=== PATIENT | female | born 1975 | race Caucasian/White ===

== ENCOUNTER 2017-07-17 08:02 | Day surgery (SDC) | payer BC ==
[2017-07-15 15:23] VITALS: BMI 36.1
[2017-07-17] MEDS ORDERED: LIDOCAINE 1%/EPI 1:100000 (50 ML MULTI DOSE VIAL) ONE (09:35)
[2017-07-17] MEDS ORDERED: BUPIVACAINE HCL/PF 0.5% (5MG/ML) 10 ML VIAL ONE (09:35)
--- NOTE | 2017-07-17 09:37 | HP ---
Satellite H - Chief Complaint Chief Complaint: right knee pain - Past Medical History Allergies/Adverse Reactions: Allergies Allergy/AdvReac Type Severity Reaction Status Date / Time No Known Allergies Allergy Verified 07/15/17 15:29 ...LMP: 07/09/17 - Current Medications Current Medications: Home Medications Medication Instructions Recorded Fluoxetine HCl 20 mg PO DAILY 07/15/17 Ibuprofen [Motrin -] 600 - 800 mg PO DAILY 07/15/17 Levothyroxine [Synthroid -] 150 mcg PO DAILY 07/15/17 Oxycodone HCl/Acetaminophen 1 - 2 tab PO Q6H #30 tab MDD 8 07/17/17 [Percocet 5-325 mg Tablet -] Satellite Physical Exam - Physical Examination Vital Signs: Vital Signs Period Temp Pulse Resp BP Sys/Stevens Pulse Ox Last 24 Hr 98.6 F 70 18 138/96 General Appearance: Well Nourished, Well Developed, Alert & Oriented x3 ENT: Clear Lung: Normal air movement Heart: Regular rate & rhythm Extremities: Other (right knee- + swelling, + ttp, decr rom, + mcmurrays, + apleys, nvi MRI + mt) Neurological: Intact, Alert, Oriented Satellite Impression/Plan - Impression/Plan Impression: right knee internal derangement Operative Procedure: right knee arthroscopy Date to be Performed: 07/17/17
[2017-07-17] MEDS ORDERED: PROPOFOL 20 ML ONE ×2 (09:46)
[2017-07-17] MEDS ORDERED: MIDAZOLAM HCL 2 MG/2 ML SINGLE DOSE VIAL ONE (09:47)
[2017-07-17] MEDS ORDERED: DEXAMETHASONE SOD PHOSPHATE 4 MG/1 ML VIAL ONE (10:01)
[2017-07-17] MEDS ORDERED: ceFAZolin SODIUM 1 GM VIAL ONE (10:01)
[2017-07-17] MEDS ORDERED: LIDOCAINE 1%/EPI 1:100000 (20 ML MULTI DOSE VIAL) IJ ONE (10:14)
[2017-07-17] MEDS ORDERED: BUPIVACAINE HCL/PF 0.5% (5MG/ML) 10 ML VIAL IJ ONE (10:27)
--- NOTE | 2017-07-17 10:34 | OP ---
Operative Note - Note: Operative Date: 07/17/17 ([facility]) Pre-Operative Diagnosis: right knee internal derangement Operation: right knee arthroscopy with debridement chondroplasty trochlea and MFC Post-Operative Diagnosis: Same as Pre-op Surgeon: Eric Mclean Anesthesiologist/CUSTOM WOOD STAIR BUILDER: Curt Cho Anesthesia: General, Local Specimens Removed: shavings Estimated Blood Loss (mls): 5 Operative Report Dictated: Yes
[2017-07-17] MEDS ORDERED: oxyCODONE HCL 5 MG TABLET PO PRN (10:43)
[2017-07-17] MEDS ORDERED: ONDANSETRON 4 MG/2 ML VIAL IVPUSH PRN (10:43)
[2017-07-17] MEDS ORDERED: LACTATED RINGERS SOLUTION 1,000 ML IV SCH (10:45)
[2017-07-17] MEDS ORDERED: KETOROLAC TROMETHAMINE 30 MG/1 ML VIAL ONE (11:15)
[2017-07-17] MEDS ORDERED: KETOROLAC TROMETHAMINE 30 MG/1 ML VIAL IVPUSH ONE (11:25)
--- NOTE | 2017-07-17 11:34 | OP ---
DATE OF OPERATION: 07/17/2017 PREOPERATIVE DIAGNOSIS: Internal derangement, right knee. POSTOPERATIVE DIAGNOSIS: Internal derangement, right knee. PROCEDURE: Arthroscopy, right knee, with chondroplasty patella, trochlea and medial femoral condyle. SURGICAL ATTENDING: Eric Mclean MD ANESTHESIA: General with LMA. CLOSURE: Nylon 4-0. COMPLICATIONS: None. CONDITION: To recovery room in stable condition. DESCRIPTION OF OPERATIVE PROCEDURE: Patient was taken to the operating room on July 17, 2017. General anesthesia with LMA was administered by the anesthesiologist. Right lower extremity was prepped and draped in the usual sterile fashion. The medial and lateral infrapatellar portal sites were infiltrated with 1% Xylocaine with epinephrine. Both portals were then made with a 15 blade followed by blunt trocar. The scope trocar was placed into the lateral infrapatellar portal and up into the suprapatellar pouch. The knee was then inflated with a cocktail of 10 mL of 1% Xylocaine and 10 mL of 0.5% Marcaine and 20 mL of arthroscopic saline to anesthetize the intraarticular portion of the knee. After the medication had sat for a few minutes, the procedure was performed. The pouch was visualized to be clean. The medial and lateral gutters were visualized to be clean. The undersurface of the patella had "crabmeat" which was debrided using the shaver down to stable articular cartilage. The trochlea was visualized and was found to have punctate areas of cartilage deficiency, especially more inferiorly. Any loose articular cartilage was debrided using the shaver. With valgus stress on the knee, the medial compartment was entered. The medial meniscus was visualized, probed, and found to be intact. The medial femoral condyle had a lesion the size of a dime in near full extension on the most lateral portion of the medial femoral condyle. A chondroplasty was then performed using a shaver, exposing some bleeding bone in this region. The rest of the medial femoral condyle was found to be intact, as was the medial tibial plateau. At 90 degrees, the ACL was visualized, probed, and found to be intact. In the figure-four position, the lateral compartment was entered. The lateral meniscus was visualized, probed, and found to be intact. The lateral tibial plateau was found to have very loose and soft articular cartilage, but no deficiencies anywhere. The lateral femoral condyle was run and found to be intact. The knee was irrigated with copious amounts of irrigation. The fluid was then drained from the knee. The portal were closed with 3-0 nylon. Prior to pulling the scope trocar, 20 mL of 0.5% Marcaine was infused into the knee through the scope trocar, and then the trocar was removed. A sterile pressure dressing was placed over the knee. The patient was awakened from anesthesia and transferred to recovery room in stable condition. No complications. Estimated blood loss negligible. Jeovany [id number]
[2017-07-17 16:03] VITALS: BP 130/78; PULSE 60; TEMP 97.8
--- NOTE | 2017-07-18 14:32 | PATH ---
Surgical Pathology Report Patient Name: SID TEJEDA [facility]. Rec. #: [id number] /Age/Gender: 1975 (Age: 42) / F Account: [id number] Location: [facility] SURGICAL Taken: 07/17/2017 Received: 07/17/2017 Reported: 07/18/2017 Physicians: Eric Mclean M.D. Specimen(s) Received RIGHT KNEE SHAVINGS Clinical History Right knee tear Final Diagnosis SOFT TISSUE, RIGHT KNEE, ARTHROSCOPIC SHAVINGS: SYNOVIUM AND FIBROCARTILAGE WITH MYXOHYALINE DEGENERATION. Electronically Signed Tavo Donnelly M.D. Gross Description Received in formalin, labeled "right knee shavings" is a 5 x 2.5 x 0.7 cm aggregate of garcia-white soft tissue fragments. A solar sales representative and assessor portion is submitted in one cassette. AF/07/17/2017 final/07/17/2017
== END 2017-07-17 13:30 | disposition home or self-care (01) ==
LOC: JASU-SURG 08:02
PROVIDERS: ATTEND Orthopaedic Surgery
PROC: 0SBC4ZZ Excision of Right Knee Joint, Percutaneous Endoscopic Approach (ICD-10-PCS; principal; 2017-07-17 09:30)
DX: M23.91 Unspecified internal derangement of right knee (principal)
CPT/HCPCS: 84703; 88304-TC; 94760